=== PATIENT | female | born 1970 | race Caucasian/White ===

== ENCOUNTER 2021-07-10 08:10 | Emergency (ER) | payer SELFPAY ==
[~2021-07-10] VITALS: Ht 165.1 cm; Wt 90.7 kg
[2021-07-10 08:15] VITALS: BP 163/92
[2021-07-10 09:04] VITALS: BP 157/88
[2021-07-10] MEDS ORDERED: LID5T TP (09:05)
[2021-07-10] MEDS ORDERED: ACET-10509 PO (09:05)
[2021-07-10] MEDS ORDERED: IBUP-2213 PO (09:05)
[2021-07-10] MEDS ORDERED: CYCL-711 PO (09:05)
--- NOTE | 2021-07-10 09:07 | NUR ---
NO NURSING CARE RENDERED, Patient discharged with v/s stable. Written and verbal after care instructions given and explained. Patient alert, oriented and verbalized understanding of instructions. Ambulatory with steady gait. All questions addressed prior to discharge. ID band removed. Patient advised to follow up with PMD. Rx of TYLENOL, FLEXERIL given. Patient educated on indication of medication including possible reaction and side effects. Opportunity to ask questions provided and answered.
--- NOTE | 2021-07-10 09:07 | NUR ---
pt requested to stay in lobby at this time
== END 2021-07-10 09:04 | disposition home or self-care (01) ==
LOC: MED 08:10
DX: M54.50 Low back pain, unspecified (principal); E66.9 Obesity, unspecified; Z68.33 Body mass index [BMI] 33.0-33.9, adult
CPT/HCPCS: 81002; 81025; 99283